=== PATIENT | male | born 1990 | race Caucasian/White ===

== ENCOUNTER 2018-02-28 20:39 | Emergency (ER) | payer MEDICAID ==
[~2018-02-28] VITALS: Ht 175.3 cm; Wt 90.3 kg
[2018-02-28 20:48] VITALS: Ht 175.3 cm; Wt 90.3 kg
[2018-02-28 22:07] VITALS: BP 139/80
== END 2018-02-28 22:07 | disposition home or self-care (01) ==
LOC: ED 20:39
DX: S63.91XA Sprain of unspecified part of right wrist and hand, initial encounter (principal); W20.8XXA Other cause of strike by thrown, projected or falling object, initial encounter; Y93.89 Activity, other specified; Y92.89 Other specified places as the place of occurrence of the external cause; Y99.8 Other external cause status
CPT/HCPCS: Q0092

== ENCOUNTER 2018-05-10 21:54 | Emergency (ER) | payer MEDICAID ==
[~2018-05-10] VITALS: Ht 175.3 cm; Wt 84.8 kg
[2018-05-10 22:51] VITALS: Ht 175.3 cm; Wt 84.8 kg
[2018-05-11 00:56] VITALS: BP 139/79
== END 2018-05-11 00:56 | disposition home or self-care (01) ==
LOC: ED 21:54
DX: L05.91 Pilonidal cyst without abscess (principal)